=== PATIENT | male | born 1950 | race Caucasian/White ===

== ENCOUNTER 2017-12-01 13:32 | Day surgery (SDC) | payer MEDICARE, OTHER, SELFPAY ==
[2017-12-01 14:11] VITALS: BP 135/80; PULSE 76; RESP 16; TEMP 36.9; O2SAT 98
[2017-12-01] MEDS: SODIUM CHLORIDE 0.9% 1,000 ML 200 ML IV (14:15)
--- NOTE | 2017-12-01 15:13 | P.HP_ITS ---
History of Present Illness Date Patient Seen: 12/01/17 Time Patient Seen: 15:11 Chief complaint: colonoscopy [id number] Narrative: Very pleasant 67-year-old gentleman here for screening colonoscopy. He denies any problems or symptoms related to the function of his GI tract reports he needs a colonoscopy as part of the Health maintenance program. He is not certain when his last colonoscopy was done but he thinks it was more than 10 years ago. Patient History Family & Social History Family History: Reviewed 12/01/17 by Lamar Bradshaw MD Social History: household members none Review of Systems Review of Systems All systems reviewed & are unremarkable except as noted in HPI and below Exam Vital Signs (past 8 hours): Vital Signs - 8 hr 3 12/01/17 14:11 Temperature 98.4 F Pulse Rate 76 Respiratory Rate 16 Blood Pressure 135/80 H Pulse Oximetry 98 Pulse Oximetry 98 Oxygen Delivery Method Room Air Narrative Exam Narrative: Very pleasant well-nourished well-developed man in no distress. HEENT: Normocephalic and atraumatic, pupils equal round reactive to light and accommodation with anicteric sclera. Poor dentition involving the front teeth is noted Lungs: Clear bilaterally Heart: Regular rate and rhythm Abdomen: Soft, rotund, active bowel sounds Extremities: Warm and well perfused Assessment & Plan Plan: Assessment/Plan Narrative: Pleasant gentleman in need of a screening study for health maintenance purposes. We discussed the risks and benefits of colonoscopy and patient expressed desire have procedure
[2017-12-01] MEDS: fentaNYL 250 MCG/5 ML INJ IV (15:34)
[2017-12-01] MEDS: MIDAZOLAM 5 MG/5 ML VIAL IV (15:34)
[2017-12-01 15:37] VITALS: BP 100/65; PULSE 72; RESP 16; O2SAT 94
--- NOTE | 2017-12-01 15:39 | PM.OP.1 ---
Operative Date/Time/Diagnoses - Date of procedure: 12/01/17 Time of procedure: 15:39 Pre-op diagnosis: Screening Post-op diagnosis: same Procedure & Clinicians Procedure: Colonoscopy to the cecum Same procedure as scheduled: Yes Indications: Last colonoscopy approximately 10 years ago Surgeon: Lamar Bradshaw Anesthesia Type: Sedation (Versed 5 mg; fentanyl 200 mcg) Operative Notes Findings: 1. Excellent prep 2. No polyps or mass lesions 3. No AV malformations 4. 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 Rectal varicosities appreciated 6. Grade 1-2 internal hemorrhoids Closure Type: not applicable Specimen(s): none sent Procedure in detail: After obtaining informed consent, the patient was brought to the GI suite and placed in the left lateral decubitus position on the examination table. After placement of appropriate monitors, the patient was given incremental doses of Versed and Fentanyl until an appropriate level of sedation was achieved. A time out was held per SCOAP protocol. A digital rectal examination was performed and did not reveal any masses or obstructing lesions. The colonoscope was gently passed into the patient's anus and the entire colon navigated to the level of the cecum with minimal difficulty. Once in the cecum, the scope was withdrawn being sure to go before and beyond all mucosal folds and prominences and get an excellent examination. The findings are noted above. At the level of the rectal vault, the scope was retroflexed and the internal anal canal was examined. The scope was straightened and air aspirated from the colon. The instrument was removed from the patient's body and the procedure was concluded. The patient was allowed to awaken from sedation without difficulty and taken to the post-anesthesia care unit in good condition. Total sedation time 20 min Total withdrawal time 14 min Condition: stable Disposition: PACU Plan for aftercare: 1. Discharge to home 2. Plan for next colonoscopy in 10 years or as clinically indicated
[2017-12-01 15:42] VITALS: BP 112/77; PULSE 75; RESP 16; O2SAT 94
[2017-12-01 15:51] VITALS: BP 114/73; PULSE 78; RESP 12; O2SAT 95
[2017-12-01 15:59] VITALS: BP 108/70; PULSE 73; RESP 15; TEMP 36.4; O2SAT 95
== END 2017-12-01 16:14 ==
LOC: ENDO 13:36
PROVIDERS: PCP Family Medicine; Visit Provider Surgery
PROC: 0DJD8ZZ Inspection of Lower Intestinal Tract, Via Natural or Artificial Opening Endoscopic (ICD-10-PCS; CPT 45378; principal; 2017-12-01 15:00)
DX: Z12.11 Encounter for screening for malignant neoplasm of colon (principal); K57.30 Diverticulosis of large intestine without perforation or abscess without bleeding; K64.1 Second degree hemorrhoids; I86.8 Varicose veins of other specified sites
CPT/HCPCS: G0121; 99152; J2250; J3010

== ENCOUNTER → 2020-01-24 12:28 | Outpatient (CLI) | payer MEDICARE, SELFPAY ==
--- NOTE | 2020-01-24 | DI.RAD.S_ITS ---
PROCEDURE: [place] BARIUM SWALLOW INDICATIONS: Dyskinesia of esophagus COMPARISON: None. FINDINGS: Function: There is decreased esophageal peristalsis. No elicited gastroesophageal reflux. Morphology: Air-contrast images demonstrate normal mucosal morphology. However, there is narrowing of the distal esophagus at the GE junction. There is associated delayed transit a barium tablet. IMPRESSION: Irregular distal esophageal stricture/narrowing, at the GE junction. Associated delayed transit of barium tablet. Recommend further evaluation with dedicated upper endoscopy to exclude stricture and/or mass. Findings and recommendations were personally telephoned and discussed with Dr. Chandler nurse ([facility]) 01/24/20 1456 hours who will relay them as soon as possible and call back if any questions Esophageal dysmotility Dictated by: Elliott Whitaker M.D. on 01/24/2020 at 13:59 Approved by: Elliott Whitaker M.D. on 01/24/2020 at 14:57
== END ==
PROVIDERS: PCP Family Medicine; Referring Provider Family Medicine; Visit Provider Family Medicine
DX: K22.4 Dyskinesia of esophagus (principal); K22.2 Esophageal obstruction
CPT/HCPCS: 74220

== ENCOUNTER → 2020-02-28 13:07 | Outpatient (ROUT) | payer MEDICARE, SELFPAY ==
[2020-02-29 07:38] LABS: COVID19 Sendout Not Detected (Not Detect)
== END ==
PROVIDERS: PCP Family Medicine; Visit Provider Nurse Practitioner
DX: Z11.59 Encounter for screening for other viral diseases (principal)
CPT/HCPCS: 87635

== ENCOUNTER 2020-03-02 10:21 | Day surgery (SDC) | payer MEDICARE, SELFPAY ==
[2020-03-02] VITALS (14 sets, daily range): BP systolic 95–129; BP diastolic 63–82; PULSE 64–82; RESP 13–17; TEMP 36.1–36.7; O2SAT 94–100; BMI 29.0
--- NOTE | 2020-03-02 | PATH_ITS ---
[facility] Accession Number: [id number] . 01 Material submitted: . PART A: duodenum - DUODENAL POLYP PART B: esophagus, E-G Junction - GE JUNCTION CANCER . 01 Clinical history: . A: DUODENAL POLYP X2 . 02 Diagnosis: A. Duodenal Polyps, Biopsies: One fragment of gastric mucosa with a focus of malignant glands; please see comment. One fragment of duodenal mucosa with features of peptic duodenitis. 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 . B. 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 Rare Goblet cells, suggestive of background Trujillo's esophagus. . HER2 BIOMARKER: A HER-2 immunostain is performed on the gastroesophageal junction biopsy (block B1), with control stained appropriately. The carcinoma cells show the following results: . HER-2 (4B5): Negative (0). . TECHNICAL NOTE: Cold ischemic time approximately 1 minute. Formalin fixation time approximately 12 hours. The scoring criteria for HER-2 expression by immunohistochemistry in gastric and esophagogastric junction adenocarcinoma is based on the current ASCO/CAP 2013 guidelines (as used in the ToGA trial, Bang et al, Lancet 28:376,927-928,2010). [facility] 03/07/2020 [facility]4 Local . 02 Comment: One fragment of tissue within the duodenal biopsy shows gastric type mucosa with a focus of malignant appearing glands. Given the findings in the gastroesophageal junction, it is favored that this biopsy fragment represents carryover from the other part. Please correlate [facility] clinical and endoscopic findings. . As part of routine director of quality improvement, Dr. Caraballo has reviewed this case and agrees with the diagnoses above. The finding of malignancy was reported to Dr. Quintanilla via Bernadette GUTIÉRREZ, by Dr. Sloan on 03/06/2020. . 02 Electronically signed: . Joesph Sloan MD, PhD, Pathologist NPI- [id number] . 01 Gross description: . A. Received in formalin, labeled duodenum polyps x2, are two fragments of diaz, soft tissue measuring 0.3 x 0.3 x 0.2 cm to 0.3 x 0.2 x 0.2 cm and one larger piece of diaz, firm tissue measuring 0.7 x 0.7 x 0.5 cm. The two smaller fragments are entirely submitted in cassette A1. The larger piece of tissue is inked, serially sectioned into four slices, and entirely submitted in cassette A2. B. Received in formalin, labeled GE junction CA, are two pieces of diaz, soft tissue measuring 0.7 x 0.4 x 0.3 cm to 0.3 x 0.2 x 0.2 cm. The first piece is inked blue, bisected, and entirely submitted in cassette B1. The second piece is inked green and entirely submitted in cassette B1. The total number pieces in cassette B1 is three. Minute amounts of mucoid material is also observed measuring 0.2 x 0.2 x 0.1 cm in aggregate. All material is entirely submitted in cassette B2. ([id number]) /[facility] 03/03/2020 0903 Local . 02 Microscopic: . A. An immunohistochemical stain was performed to evaluate for Helicobacter organisms and is negative. The control stain showed appropriate reactivity. . B. Sections are of proximal gastric type mucosa with marked chronic, mild active inflammation. Areas are replaced by a proliferation of epithelioid cells in a nested and diffuse growth pattern. Patchy areas of necrosis are present. To further classify the malignant cells, a panel of immunohistochemical stains is performed (each with an appropriately positive control). The malignant cells are positive for cytokeratin 7 (variable), cytokeratin 20 (variable), and villin (brush border accentuation), and are negative for p40 and CK5/6 immunoreactivity. An AB/PAS stain highlights scattered intracellular mucin within the malignant cells. Additionally, scattered goblet cells are seen in the background, suggestive of background Trujillo's esophagus. The morphology and immunoprofile are consistent with esophageal primary adenocarcinoma. Squamous cell carcinoma is excluded. The adenocarcinoma cells are negative (0) for HER-2 overexpression. . * This test was developed and its performance characteristics determined by [employer]. It has not been cleared or approved by the U.S. Food and Drug Administration. The FDA has determined that such clearance or approval is not necessary. This test is used for clinical purposes. It should not be regarded as investigational or for research. . 02 Pathologist provided ICD-10: C15.9, K31.7 . 02 CPT . 862368, 268546, A22038, N29037, 087665 Performed at: 01 [facility] [address] [place] [address] [id number] MD Jayme Calixto MD Phone: [phone] Performed at: 02 [facility] [address] [place] [address] [id number] MD Rohini Caraballo MD Phone: [phone]
[2020-03-02] MEDS: SODIUM CHLORIDE 0.9% 1,000 ML 200 ML IV ×2 (10:39→12:32)
--- NOTE | 2020-03-02 11:26 | PM.PREOP ---
Pre-operative Note COVID-19 COVID-19 status: Negative Result date/Date tested (Pos, Neg/Pending): 02/28/20 Interval Note History & Physical reviewed/Exam performed by Physician: Yes Changes to H&P: No ASA Class (for procedural sedation): II
--- NOTE | 2020-03-02 11:27 | PM.OP.ENDO ---
Operative Date/Time/Diagnoses Date of procedure: 03/02/20 Time of procedure: 11:28 Pre-op diagnosis: Dysphagia, esophageal stricture seen on swallowing study Post-op diagnosis: other (GE junction cancer, approximately 4 x 3 cm just inside the GE junction with extension into the lower esophagus.) Procedure & Clinicians Study performed: EGD Procedural sedation performed by the endoscopist Biopsies of duodenal polyp with hot snare Biopsies of gastric cardia neoplasm with hot snare Same procedure as scheduled: Yes Indications: 69-year-old man with dysphagia, and esophageal stricture seen on the barium swallow Surgeon: Heather Quintanilla Procedure Notes SCOAP/Timeout: Performed Procedure in detail: The patient was brought to the room and placed in left lateral decubitus position with all bony prominences padded. A bite block was positioned in the patient's mouth to protect the lips, teeth, and tongue for the procedure. A time-out was performed and then the patient was given procedural sedation starting with [4] mg of Versed and [100] mcg of fentanyl. A total of 11 mg of Versed and 100 micro g of fentanyl were given for the entire procedure. Vitals were monitored throughout the procedure and remained stable. Once adequately sedated, the procedure was begun. The lubricated gastroscope was passed through the bite block and across the tongue and into the esophagus without incident. A tubular view of the esophagus was maintained as the scope was advanced through the esophagus. In the distal esophagus large 4 cm tongue of salmon-colored mucosa was seen extending up into the esophagus. Just distal to that at the GE junction there was some heaped up mucosa. As I advanced into the stomach, I saw a large necrotic mass consistent with a cancer. I advanced into the stomach and through the pylorus. There were multiple polyps within the duodenal bulb. I then advanced into the 3rd part of the duodenum. There was an ulcer that was not actively bleeding and with no exposed vessel seen in the 2nd part of the duodenum. I then pulled back into the stomach, examined the remainder of the stomach and no other masses were seen. The scope was retroflexed and again a large cancerous appearing mass was seen at the GE junction. It was approximately 4 x 4 cm with a large deep ulcer in the center. I took several biopsies with hot snare. The mass was very friable and bled when touched. Once hemostasis was achieved using cautery, I then straightened the scope and pulled it back into the esophagus. There was some narrowing of the distal esophagus at the site of the neoplasm. Again I saw large 4 cm time of Trujillo's esophagus. The scope was then withdrawn through the esophagus with a tubular view. The remainder of the esophagus appeared fairly normal. The scope was then withdrawn from the patient the procedure was concluded. The patient tolerated the procedure well and was transferred to the PACU in stable condition. 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
[2020-03-02] MEDS: fentaNYL 250 MCG/5 ML INJ IV (11:28)
[2020-03-02] MEDS: LIDOCAINE 4% SOLN 50 ML 20 ML TOP (11:28)
[2020-03-02] MEDS: MIDAZOLAM 5 MG/5 ML VIAL IV (11:29)
[2020-03-02 13:29] LABS: Add Manual Diff / Slide Review NO; Basophils Absolute Auto 100 /uL (0-100); Basophils Percent Auto 0.8 % (0-2); Eosinophils Absolute Auto 200 /uL (0-450); Hematocrit 41.4 % (41-53); Hemoglobin 13.9 g/dL (13.5-17.5); Lymphocytes Absolute Auto 1500 /uL (1100-4500); Lymphocytes Percent Auto 20.1 % (25-40); Mean Corpuscular HGB Conc 33.6 % (30-36); Mean Corpuscular Hemoglobin 32.1 PG (26-34); Mean Corpuscular Volume 95.7 fL (80-100); Monocytes Absolute Auto 600 /uL (0-900); Monocytes Percent Auto 7.9 % (3-14); Neutrophils Absolute Auto 5300 /uL (1500-7000); Neutrophils Percent Auto 69.2 % (50-75); Platelet Count 270 X10^3/uL (150-400); Red Blood Cell Count 4.33 X10^6/uL (4.5-5.9); Red Cell Distribution Width 13.4 % (11.6-14.8); White Blood Cell Count 7.6 X10^3/uL (4.5-11.0)
[2020-03-02 13:52] LABS: Alanine Aminotransferase 14 IU/L (<50); Albumin 3.7 g/dL (3.5-5.0); Albumin Globulin Ratio 1.2 (1.0-2.8); Alkaline Phosphatase 63 U/L (38-126); Aspartate Aminotransferase 22 IU/L (17-59); BUN Creatinine Ratio 16.5 (6-22); Bilirubin Total 0.5 mg/dL (0.2-1.3); Blood Urea Nitrogen 15 mg/dL (9-20); Calcium 8.6 mg/dL (8.4-10.2); Carbon Dioxide 29 mmol/L (22-32); Chloride 103 mmol/L (98-107); Estimated Glomerular Filt Rate > 60.0 mL/min (>60); Glucose 110 mg/dL (80-110); Sodium 139 mmol/L (137-145); Total Protein 6.7 g/dL (6.3-8.2)
[2020-03-02 13:55] LABS: HEMOLYSIS 52 (0-50)
--- NOTE | 2020-03-02 14:02 | DI.CT.S_ITS ---
PROCEDURE: CT CHEST ABD PEL W CON INDICATIONS: new esophageal cancer, bleeding TECHNIQUE: After the administration of intravenous contrast, 5 mm thick sections acquired from the lung apices to the symphysis. 5 mm coronal and sagittal reformats were performed, with additional 7 mm coronal MIP reformats through the lungs. For radiation dose reduction, the following was used: automated exposure control, adjustment of mA and/or kV according to patient size. COMPARISON: [facility], , [place] BARIUM SWALLOW, 01/24/2020, 11:55. FINDINGS: Image quality: Excellent. CHEST: Lungs and pleura: No definite acute airspace opacities. There is mild linear scarring or atelectasis each lung base, left slightly greater than right No pleural effusions or pneumothorax. Central and peripheral airways appear patent and normal in caliber. Mediastinum: Heart size is normal. No pericardial effusion. No mediastinal or hilar adenopathy by size criteria. Thoracic aorta and central pulmonary arteries are normal in size. Esophagus is normal in caliber. No hiatal hernia is seen but the distal esophagus appears somewhat thickened along its mural margin, as it transitions into the esophagogastric junction and upper gastric cardia. Chest wall: No axillary or supraclavicular adenopathy by size criteria. Thyroid gland appears normal. ABDOMEN: Solid organs: Liver is normal in size and enhancement. Gallbladder appears normal. Biliary system is non dilated. Pancreas enhances normally. Spleen is normal in size and enhancement. No adrenal nodules. Kidneys demonstrate normal size and enhancement, without hydronephrosis. Note is made of a water density exophytic upper pole left renal cortical cyst measuring up to 5.8 cm. Peritoneum and bowel: Bowel loops demonstrate normal wall thickness and caliber. No free fluid or air. There is, however, abnormal thickening of the gastric wall at the gastric cardia, with a relatively abrupt transition from thickened appearance to a more normal gastric wall thickness immediately beyond. The area of abnormality appears slightly in enhancing, above normal, with a maximal infiltrative appearance within the gastric wall of up to 8.4 cm AP, 2.8 cm maximal transverse and up to 4.7 cm craniocaudad. At the posterior gastric cardia as it transitions through the margin of the gastrohepatic ligament there is an eccentric soft tissue projection from the gastric wall measuring up to 2.7 cm in maximal axial dimension. This is somewhat rounded, contiguous with the abnormal gastric wall, and extends to abut the border of the arteries within the gastrohepatic ligament. This is best seen on coronal re-formation imaging series 4, image 34, and axial imaging series 2, image 57. A contiguous enlarged lymph node or direct invasion from the gastric wall into the gastrohepatic ligament both could produce this appearance. Nodes and vessels: No retroperitoneal or mesenteric adenopathy by size criteria. Aorta and inferior vena cava are normal in size. Miscellaneous: No ventral hernias. PELVIS: Genitourinary: Bladder wall thickness is normal. Miscellaneous: No inguinal hernias or adenopathy. Bones: No suspicious bony lesions. No vertebral body compression fractures. IMPRESSION: Malignant-appearing mass involving the far distal esophagus and centered in the gastric cardia with abnormal increased enhancement and thickening of the gastric wall in that area and with what appears to be either directly contiguous enlarged lymph node in the gastrohepatic ligament or direct invasion from the neoplasm into that ligament, abutting arterial structures within. No sign of gastric or esophageal dilatation. No adenopathy along the esophagus within the chest is found, and there is no visualized pulmonary metastatic disease. Dictated by: Luis Gonzalez M.D. on 03/02/2020 at 15:09 Approved by: Luis Gonzalez M.D. on 03/02/2020 at 15:19
== END 2020-03-02 15:13 | disposition home or self-care (01) ==
PROVIDERS: PCP Family Medicine; Referring Provider Family Medicine; Visit Provider Surgery
PROC: 0DJ08ZZ Inspection of Upper Intestinal Tract, Via Natural or Artificial Opening Endoscopic (ICD-10-PCS; CPT 43235; principal; 2020-03-02 11:30)
DX: C15.9 Malignant neoplasm of esophagus, unspecified (principal); F17.210 Nicotine dependence, cigarettes, uncomplicated; K31.7 Polyp of stomach and duodenum; K26.9 Duodenal ulcer, unspecified as acute or chronic, without hemorrhage or perforation
CPT/HCPCS: 43250; 71260; 74177; 80053; 85025; 99152; 99153; J2250; J3010; Q9967

== ENCOUNTER → 2020-03-17 10:41 | Outpatient (CLI) | payer MEDICARE, SELFPAY ==
[2020-03-19 09:27] LABS: COVID19 Sendout Not Detected (Not Detect)
== END ==
PROVIDERS: PCP Family Medicine; Visit Provider Nurse Practitioner
DX: Z11.59 Encounter for screening for other viral diseases (principal)
CPT/HCPCS: 87635

== ENCOUNTER 2020-03-23 09:09 | Day surgery (SDC) | payer MEDICARE, SELFPAY ==
[2020-03-21 14:38] VITALS: BMI 30.4
[2020-03-23] VITALS (10 sets, daily range): BP systolic 120–135; BP diastolic 66–75; PULSE 59–79; RESP 12–16; TEMP 35.9–36.6; O2SAT 96–99; BMI 30.4
--- NOTE | 2020-03-23 | DI.RAD.S_ITS ---
PROCEDURE: XR CHEST 1V INDICATIONS: PORT PLACEMENT TECHNIQUE: One view of the chest was acquired. COMPARISON: None. FINDINGS: Surgical changes and devices: Port-A-Cath from right-sided approach extends into the right atrium superiorly. Lungs and pleura: Lungs are clear considering reduced inspiratory volume. No pleural effusions or pneumothorax. Mediastinum: Mediastinal contours appear normal. Heart size is normal. Bones and chest wall: No suspicious bony lesions. Overlying soft tissues appear unremarkable. IMPRESSION: Reduced inspiratory volume, secondary mild lung base atelectasis. No pneumothorax after right-sided Port-A-Cath placement with tip in the upper right atrium. Dictated by: Luis Gonzalez M.D. on 03/23/2020 at 13:28 Approved by: Luis Gonzalez M.D. on 03/23/2020 at 13:29
[2020-03-23 09:53] LABS: COVID19 -Nasal RAPID Negative (Negative)
--- NOTE | 2020-03-23 10:25 | SUR.OPER ---
Addendum entered by Yas Bernal R.N. 03/23/20 11:38: arms tucked at sides with gel pads Original Note: Supine on padded OR bed, head on pillow, arms secured on padded arm boards at <90 degrees abduction, legs uncrossed, safety belt at thigh, tape over blanket over lower legs.
[2020-03-23] MEDS: LACTATED RINGERS 1,000 ML 42 ML IV (10:30)
--- NOTE | 2020-03-23 10:55 | PM.HP.1 ---
History of Present Illness History of Present Illness Date Patient Seen: 03/23/20 Time Patient Seen: 10:55 Chief complaint: SDC Narrative: This is a 69-year-old man with history of obesity, who had had about a 1 month history of difficulty swallowing. He was seen one month ago for EGD and diagnosed with esophageal cancer. He has been seen at [facility] and recommended for chemotherapy. He is here today for portacath placement. He denies any other change since he was here for his EGD. ROS: Positive for swollen glands, difficulty swallowing, vomiting. Thirteen system review is otherwise negative other than as mentioned below and in HPI. PE: GENERAL: Well groomed and cooperative. Appears stated age. Answers questions promptly and appropriately. Vital signs noted. HENT: Normocephalic, atraumatic. Hearing intact. Few scattered palpable cervical lymph nodes, not larger than a cm. EYES: Conjunctiva pink, sclera white, no periorbital swelling. CARDIOVASCULAR: Regular rate. No pedal edema. RESPIRATORY: Non-tachypneic, breathing comfortably on room air. GASTROINTESTINAL: Abdomen soft and non-distended GENITALURINARY: No flank tenderness. MUSCULOSKELETAL: Equal tone and mass bilaterally. SKIN: Warm, dry, soft, appropriate color for ethnicity. No other lesions, rashes, or wounds. NEURO: Alert and Oriented X 3. No gross sensory deficits, or cognitive issues. PSYCH: Appropriate affect and mood. Patient History Medical History Acute hepatitis A (Acute) Kidney stones (Acute) Weight loss, unintentional (Acute) Family & Social History Social History: household members friend(s) Tobacco & Substance use: Tobacco type cigarettes Smoking Status Current every day smoker alcohol intake current alcohol intake frequency holiday/special occasion Substance Use Type does not use Meds Home Medications and Allergies Allergies Allergy/AdvReac Type Severity Reaction Status Date / Time No Known Drug Allergies Allergy Verified 03/23/20 10:13 Exam Vital Signs (past 8 hours): - 03/23/20 10:14 Temperature 97.9 F Pulse Rate 67 Respiratory Rate 16 Blood Pressure 120/70 Pulse Oximetry 98 Oxygen Delivery Method Room Air Objective Labs Labs: Laboratory Results - last 24 hr 03/23/20 09:30 COVID-19 PCR Negative Assessment & Plan Assessment and plan (1) Malignant neoplasm of gastroesophageal junction: Status: Acute (2) Dysphagia: Status: Acute Assessment & Plan narrative: This 69-year-old man with history of esophageal cancer recently diagnosed, who is in need of a Port-A-Cath placed today. Risks and benefits of the procedure were discussed with the patient including risk of bleeding, infection, damage to nearby structures, need for additional procedures, need for chest tube, need for declotting procedures or replacement of the Port-A-Cath should it dysfunction. COVID-19 COVID-19 status: Negative Result date/Date tested (Pos, Neg/Pending): 03/23/20 Time Spent With Patient Time with patient: 15-24 minutes Quality VTE Deep Vein Thrombosis/Pulmonary Embolism Present on Admission: No
[2020-03-23] MEDS: CEFAZOLIN 2 GM/100 ML FROZ.PIGGY IV (11:16)
[2020-03-23] MEDS: BUPIVACAINE 0.25% W/ EPI 30 ML VIAL INJ (11:46)
[2020-03-23] MEDS: HEPARIN 5,000 UNIT, SODIUM CHLORIDE 0.9% 50 ML IV (11:47)
--- NOTE | 2020-03-23 12:02 | P.OP_ITS ---
Operative Date/Time/Diagnoses Date of procedure: 03/23/20 Time of procedure: 12:02 Pre-op diagnosis: Esophageal cancer Post-op diagnosis: same Procedure & Clinicians Procedure: Port-A-Cath placement on right chest via right IJ using ultrasound and fluoroscopy guidance Same procedure as scheduled: Yes Indications: Esophageal cancer, in need of chemotherapy Surgeon: Heather Quintanilla Click Yes if Unassisted: Yes Anesthesia Type: General Operative Notes Findings: Good port and catheter position via intraop fluoroscopy; good flush and blood return after port placement was complete Specimen(s): none sent Prosthetic devices, grafts, tissues, transplants, or devices: BARD slim contour power port Estimated Blood Loss (mL): 5 Procedure in detail: The patient was placed supine on the operating room table and underwent general LMA anesthesia. A roll was placed between his shoulders. The neck and chest were prepped and draped in the usual sterile fashion. Surgical time-out was conducted. The patient was positioned in Trendelenburg, and local anesthetic was infiltrated beneath the skin overlying the right IJ. The right neck was examined with ultrasound, and an appropriate position on the internal jugular vein was identified. The right IJ was accessed with a large- bore needle and syringe using simultaneous ultrasound guidance. Dark blood returned indicating venous access, and the guidewire was passed through the needle. Fluoroscopy was used to identify the position of the guidewire, which appeared appropriate in the superior vena cava. Local anesthetic was infiltrated, and a 3 cm transverse incision was then made in the skin on the right chest wall and a 2 cm x 2 cm pocket was created inferior to the incision. The port was put together and flushed with heparinized saline. It was positioned in the pocket, and the tunneler was used to tunnel the catheter up to the jugular vein after injecting local anesthetic in the subcutaneous tissue of the chest wall. A skin incision was made over top of the guide wire, and the dilator and introducer sheath were passed over the wire using fluoro guidance. The wire and dilator were then removed and the sheath was left in place. The catheter was cut to the appropriate length after evaluating its length using fluoro with the catheter position on the patient's chest. Once it was tapered to appropriate length the catheter was passed through the introducer and then the sheath was peeled away. Again using fluoro guidance, the catheter tip appeared to be in good position within the superior vena cava at the cavoatrial junction. The port was fixed to the chest wall using 3 0 silk suture. The Port-A-Cath was accessed through the skin using a Ortiz needle and was found to flush well and draw back blood easily. It was flushed with 5cc of heparinized saline.The skin was closed with 3 0 Vicryl and 4 0 Monocryl, and the skin incisions were sealed with Dermabond. This concluded the procedure and the patient was awakened from anesthesia and transferred to the postanesthesia care unit in stable condition. Needle sponge and instrument counts were correct x2 at the end of the case. The patient tolerated the procedure well and was transferred to the PACU in stable condition. In the PACU of follow-up chest x-ray was done which showed no pneumothorax and good positioning of the catheter. Complications: none Post-operative Condition: stable Disposition: PACU
[2020-03-23] MEDS: LACTATED RINGERS 1,000 ML 100 ML IV (12:20)
--- NOTE | 2020-03-23 13:32 | SUR.PHASEII ---
PT SITTING UP IN BED RESTING WITH EYES CLOSED, EASILY AROUSABLE TO VOICE WHEN SPOKEN TO. SURGICAL SITE C/D/I. PT DENIES ANY PAIN/DISCOMFORT AT THIS TIME. PT AWAITING ARRIVAL OF AT THIS TIME. BED IN LOWEST POSITION AND CALL LIGHT GIVEN TO PT. PT APPEARS COMFORTABLE AT THIS TIME.
== END 2020-03-23 15:27 | disposition home or self-care (01) ==
PROVIDERS: PCP Family Medicine; Referring Provider Family Medicine; Visit Provider Surgery
PROC: (CPT 36561; principal; 2020-03-23 10:45)
DX: C15.9 Malignant neoplasm of esophagus, unspecified (principal); Z45.2 Encounter for adjustment and management of vascular access device; F17.210 Nicotine dependence, cigarettes, uncomplicated
CPT/HCPCS: 36561; 71045; 76000; 87635; C1788; J0690; J1644; J2704; J3010

== ENCOUNTER → 2020-04-26 15:30 | Oncology outpatient (ONC) | payer MEDICARE, SELFPAY ==
[2020-03-21 08:25] VITALS: BP 118/70; PULSE 68; RESP 18; TEMP 36.9; O2SAT 100
--- NOTE | 2020-03-21 08:42 | ONC.MSW ---
Description: New Pt F/F Visit Activity: Met with pt prior to his provider visit to offer services card, discuss resources such as the [employer] [employer] and Lodging programs, and assess immediate needs. Discussed his insurance coverage and answered questions about the upcoming Medicare enrollment period, and his plan to sign up for a Part D plan, which he currently doesn't have. 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 CAD DRAFTER will talk with him again once his initial treatment plan is established today at this initial consult visit.
--- NOTE | 2020-03-21 09:47 | ONC.CONS ---
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 He recently presented to Dr. Love in December with a one-week history of hiccups, regurgitation and an abnormal sensation of swallowing. This persisted and he had a barium swallow on January 23 that showed a stricture at the gastroesophageal junction. He was referred to Dr. Quintanilla on February 15 that on March 02 he had an upper endoscopy that showed a poorly differentiated adenocarcinoma of the gastroesophageal junction that was HER2 negative. A subsequent CT scan of the chest, abdomen pelvis showed a GE junction tumor with extension of mass into the gastrohepatic ligament abutting blood vessels but no distant metastases. He was seen by Dr. Orlin Jimenez at [facility] in [place]. On March 14 a PET scan showed his primary tumor and adjacent lymph nodes but no evidence of distant metastases. Yesterday he had a laparoscopic staging study which, according to the patient, was negative. He now presents for medical oncology consultation. Review of systems is remarkable for increasing fatigue. He has decreased p.o. intake as a consequence of his trouble swallowing. He does not really have anorexia. He has lost about 20 lb over the last 2 months. He notes still is sometimes have some regurgitation of mucus at the start of a meal but then it gets better afterwards. He has some epigastric discomfort this been present for about 2 months and is ongoing. He denies other pain, bleeding, localized weakness, fever, chills, nausea, vomiting, cough or shortness of breath. All other systems are negative. Past medical history 1. Geriatric assessment: He is independent with his ADLs and IADLs. Get up and go time was 10 seconds which is normal. He answered questions fluently without problems. He has had no falls in the last year. His CARG score is 4 reflecting a risk of significant chemotherapy toxicity of about 30%. Overall he has a fit geriatric status. 2. Family history of lung cancer in his maternal grandfather otherwise no family history of malignancy. 3. He has had no surgeries 4. 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 He has a female significant other with whom he shares a house and is available to help with his medical issues. He smokes 3-4 cigarettes a day and over the years has been a half pack-a-day smoker. He is not a drinker. 5. He has had kidney stones, most recently May 2019. 6. He denies high blood pressure, diabetes, rheumatic fever, tuberculosis, heart attacks, strokes, stomach ulcers, pneumonia or any other kind of cancer 7. No known drug allergies 8. Current medications include Flonase nose spray, as needed Ativan, naproxen 250 mg twice a day as needed, pantoprazole 20 mg daily and PreserVision. CC: Man Catalan MD Home Medications and Allergies Home Medications Medication Instructions Recorded Confirmed Type omeprazole 40 mg PO DAILY 03/21/20 03/21/20 History Allergies Allergy/AdvReac Type Severity Reaction Status Date / Time No Known Drug Allergies Allergy Verified 03/02/20 10:37 Medical History - Medical, Surgical, Family History Medical History: Medical History (Last Updated 03/02/20 @ 11:02 by Janel Victor RN) Acute hepatitis A Kidney stones Weight loss, unintentional - Social History Smoking Status: Current every day smoker Exam Vital signs: Vital Signs Temp Pulse Resp BP Pulse Ox 03/21/20 08:25 98.4 F 68 18 118/70 100 Intake and Output 03/20/20 03/21/20 03/21/20 23:59 07:59 15:59 Other: Weight 90.4 kg Patient Weight 03/21/20 23:59 Weight 90.4 kg Narrative: He was awake, alert and oriented x3. Was fully ambulatory and in no acute distress. There was no lymphadenopathy in the cervical, supraclavicular axillary regions. Lungs were clear without wheezes or rales. Heart showed regular rate and rhythm without murmur, gallop or rub. The abdomen is soft and nontender without organomegaly or masses. There was no evidence of peripheral neuropathy on pinprick examination of his hands or feet. Assessment and Plan (1) Malignant neoplasm of gastroesophageal junction Status: Acute Mr. Allen has a poorly differentiated adenocarcinoma of the gastroesophageal junction. There was extension outside the wall of the GI tract and this would warrant preoperative treatment. I discussed his case with Dr. Orlin Jimenez at [facility] in [place]. I also discussed his case with Dr. Julio Márquez at the [facility]. Dr. Márquez specializes in gastrointestinal malignancies at the [facility]. I explained that preoperative treatment options would include chemo radiotherapy. This would typically be given according to the CROSS trial program of weekly carboplatin Taxol and daily radiation Thursday through Thursday. A typical course would last about 5-5 and half weeks. Side effects can include numbness or tingling in the hands and feet, upset stomach, fatigue, irritation of normal tissues in the pathway of the beam. Other side effects can occur but most people tolerate it fairly well. Alternatively, he could be treated with chemotherapy alone. A standard regimen would be FLOT given according to the program outlined by Crow in Lancet volume 393: Page 1948, 2019. This program involves administration of 5 FU 2600 mg IV is a 24 hour infusion on day 1, Leucovorin 200 milligrams/meter squared on day 1, oxaliplatin 85 milligrams/meters squared on day 1, and Taxotere 50 milligrams/meter squared on day 1. He would need to come for day 1 treatment and day 2 for disconnect. We would typically give Neulasta on day 2 to support his white count given the 51% rate of severe neutropenia, and 18% rate of neutropenic fever with this program. We reviewed possible side effects which can include upset stomach, myelosuppression with the consequent risk of infection or bleeding, hair loss, numbness or tingling in the hands and feet, aches and pains, mouth sores, cold intolerance, skin rash. He will be given written information about each of the medicines and have a teaching session with the chemotherapy nurses prior to initiating treatment. He will also need placement of a Port-A-Cath prior to initiating treatment. He will also be referred to the chief unit forester to try to maximize his calorie intake during his chemotherapy treatments. He was also advised to try to be as active as possible to improve the efficacy and decrease toxicities of treatment. Mr. Allen understood his diagnosis, the rationale for for preoperative treatment, the choices of chemo radiotherapy versus chemotherapy alone, the logistics and potential toxicities of these treatments, and he was interested in proceeding with chemotherapy. I reviewed this with our pharmacy and we will get preauthorization for FLOT. He will be referred to Dr. Quintanilla for Port-A-Cath placement. He also be referred through to the chief unit forester. Will plan to see him back afterwards to start treatment. He had multiple questions that were answered in detail and I personally spent 66 minutes in today's [id number] visit with greater than 50% of the time spent in counseling regarding the issues outlined above. New Impression: 1. Poorly differentiated adenocarcinoma of the gastroesophageal junction with extension outside the GI tract in to adjacent lymph nodes and soft tissue but no evidence of distant metastatic disease 2. Fit geriatric status 3. No evidence of peripheral neuropathy on history or physical examination as outlined above 4. CARG of 4 reflecting a 30% risk of severe toxicity with chemotherapy in this setting 5. Other medical problems as listed above Recommendations: 1. Referral to Dr. Quintanilla for Port-A-Cath placement 2. Referral to chief unit forester for counseling regarding maximizing calorie intake 3. He will return after Port-A-Cath placement to initiate preoperative chemotherapy with FLOT 4. Will plan to give 4 cycles of FLOT at 2 week intervals to be followed by surgery with additional chemotherapy postoperatively. 5. He would be a candidate for day 2 Neulasta and IV fluids as discussed above
--- NOTE | 2020-03-21 10:16 | ONC.SCHED ---
Urgent port placement scheduled with Kristina for 03/23/20 @ 9:45 am check in. Sending referral to nutrition.
[2020-03-27 08:29] VITALS: BP 109/67; PULSE 79; RESP 16; O2SAT 99
[2020-03-27 09:12] LABS: Add Manual Diff / Slide Review NO; Basophils Absolute Auto 100 /uL (0-100); Basophils Percent Auto 1.3 % (0-2); Eosinophils Absolute Auto 100 /uL (0-450); Eosinophils Percent Auto 1.9 % (2-4); Hematocrit 42.4 % (41-53); Hemoglobin 14.6 g/dL (13.5-17.5); Lymphocytes Absolute Auto 1600 /uL (1100-4500); Mean Corpuscular HGB Conc 34.3 % (30-36); Mean Corpuscular Hemoglobin 32.4 PG (26-34); Mean Corpuscular Volume 94.4 fL (80-100); Monocytes Absolute Auto 600 /uL (0-900); Monocytes Percent Auto 8.8 % (3-14); Neutrophils Absolute Auto 4800 /uL (1500-7000); Platelet Count 299 X10^3/uL (150-400); Red Blood Cell Count 4.49 X10^6/uL (4.5-5.9); Red Cell Distribution Width 12.9 % (11.6-14.8); White Blood Cell Count 7.2 X10^3/uL (4.5-11.0)
--- NOTE | 2020-03-27 09:13 | P.PNONC_ITS ---
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 He originally presented to Dr. Love in December with a one-week history of hiccups, regurgitation and an abnormal sensation of swallowing. This persisted and he had a barium swallow on January 23 that showed a stricture at the gastroesophageal junction. He was referred to Dr. Quintanilla on February 15 that on March 02 he had an upper endoscopy that showed a poorly differentiated adenocarcinoma of the gastroesophageal junction that was HER2 negative. A subsequent CT scan of the chest, abdomen pelvis showed a GE junction tumor with extension of mass into the gastrohepatic ligament abutting blood vessels but no distant metastases. He was seen by Dr. Orlin Jimenez at [facility] in [place]. On March 14 a PET scan showed his primary tumor and adjacent lymph nodes but no evidence of distant metastases. Last week he had a laparoscopic staging study which, according to the patient, was negative. He now presents for medical oncology consultation. Review of systems is remarkable for increasing fatigue. He has decreased p.o. intake as a consequence of his trouble swallowing. He does not really have anorexia. He has lost about 20 lb over the last 2 months. He notes still is sometimes have some regurgitation of mucus at the start of a meal but then it gets better afterwards. He has some epigastric discomfort this been present for about 2 months and is ongoing. He denies other pain, bleeding, localized weakness, fever, chills, nausea, vomiting, cough or shortness of breath. All other systems are negative. He does not feel like there has been any significant change since his visit a week ago. Past medical history 1. Geriatric assessment: He is independent with his ADLs and IADLs. Get up and go time was 10 seconds which is normal. He answered questions fluently without problems. He has had no falls in the last year. His CARG score is 4 reflecting a risk of significant chemotherapy toxicity of about 30%. Overall he has a fit geriatric status. 2. Family history of lung cancer in his maternal grandfather otherwise no family history of malignancy. 3. He has had no surgeries 4. 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 He has a female significant other with whom he shares a house and is available to help with his medical issues. He smokes 3-4 cigarettes a day and over the years has been a half pack-a-day smoker. He is not a drinker. 5. He has had kidney stones, most recently May 2019. 6. He denies high blood pressure, diabetes, rheumatic fever, tuberculosis, heart attacks, strokes, stomach ulcers, pneumonia or any other kind of cancer 7. No known drug allergies 8. Current medications include Flonase nose spray, as needed Ativan, naproxen 250 mg twice a day as needed, pantoprazole 20 mg daily and PreserVision. - Patient Self-Reported Symptoms SR Constitution: Weight loss/gain, Fatigue/Malaise SR ears, nose, mouth, throat issues: Cough Home Medications and Allergies Allergies Allergy/AdvReac Type Severity Reaction Status Date / Time No Known Drug Allergies Allergy Verified 03/23/20 10:13 Exam Vital signs: Vital Signs Pulse Resp BP Pulse Ox 03/27/20 08:29 79 16 109/67 99 Intake and Output 03/26/20 03/27/20 03/27/20 23:59 07:59 15:59 Other: Weight 89.6 kg Patient Weight 03/27/20 23:59 Weight 89.6 kg Narrative: He was awake, alert and oriented x3. Was fully ambulatory and in no acute distress. Assessment and Plan (1) Malignant neoplasm of gastroesophageal junction Status: Acute Mr. Allen has a poorly differentiated adenocarcinoma of the gastroesophageal junction. There was extension outside the wall of the GI tract and this would warrant preoperative treatment. He had questions about chemo radiotherapy with weekly Taxol carboplatin. These were answered. His Port-A-Cath has been placed. He would like to proceed with perioperative chemotherapy and we will use FLOT. We reviewed the logistics of this which would involve Leucovorin, oxaliplatin and Taxotere given here in the clinic today. He will then get connection to a 24 hour 5 FU infusion that will be completed tomorrow. A return tomorrow for pump removal and will get a Neulasta injection at that time. He will be 24 hours out from his myelosuppressive chemotherapy at that time. Will also assess the need for intravenous fluids. We discussed the fact that we will give him anti emetics here in the clinic prior to each treatment. His antiemetic regimen was changed to emend, Aloxi and dexamethasone. I will send prescriptions for Compazine and lorazepam to [facility] on [facility] for him to use at home. We also discussed potential toxicities of treatment including alopecia, myelosuppression with the consequent risk of infection or bleeding, numbness and tingling in the hands and feet, fatigue, cognitive issues, skin rash, mouth sores, diarrhea, aches and pains and cold intolerance. He was given written information about the logistics, medications, and potential toxicities. Orders were reviewed with the pharmacy in the nurses. Mr. Allen understood his diagnosis, the rationale for for preoperative treatment, the choices of chemo radiotherapy versus chemotherapy alone, the logistics and potential toxicities of these treatments, and he was interested in proceeding with chemotherapy. Impression: 1. Poorly differentiated adenocarcinoma of the gastroesophageal junction with extension outside the GI tract in to adjacent lymph nodes and soft tissue but no evidence of distant metastatic disease 2. Fit geriatric status 3. No evidence of peripheral neuropathy on history or physical examination as outlined above 4. CARG of 4 reflecting a 30% risk of severe toxicity with chemotherapy in this setting 5. Other medical problems as listed above Recommendations: 1. Begin chemotherapy today with FLOT cycle 1. 2. Return tomorrow to disconnect 5 FU infusion pump and received Neulasta 3. CBC on [facility] in 1 week 4. Return in 2 weeks for cycle 2. 5. Prescriptions for Compazine lorazepam as home antiemetics were sent to [facility] 6. Will plan 4 doses of chemotherapy at 2 week intervals with careful monitoring for toxicity. Efficacy at assessment would initially take the form of monitoring his swallowing function and will get a follow-up CT scan after 4 rounds (8 weeks) of chemotherapy
[2020-03-27 09:25] LABS: Alanine Aminotransferase 15 IU/L (<50); Albumin 4.1 g/dL (3.5-5.0); Albumin Globulin Ratio 1.3 (1.0-2.8); Alkaline Phosphatase 83 U/L (38-126); Aspartate Aminotransferase 19 IU/L (17-59); BUN Creatinine Ratio 15.1 (6-22); Bilirubin Total 0.4 mg/dL (0.2-1.3); Blood Urea Nitrogen 14 mg/dL (9-20); Calcium 9.4 mg/dL (8.4-10.2); Carbon Dioxide 29 mmol/L (22-32); Chloride 104 mmol/L (98-107); Estimated Glomerular Filt Rate > 60.0 mL/min (>60); Globulin 3.1 g/dL (1.7-4.1); Glucose 124 mg/dL (80-110); HEMOLYSIS < 15 (0-50); Potassium 4.4 mmol/L (3.4-5.1); Sodium 138 mmol/L (137-145); Total Protein 7.2 g/dL (6.3-8.2)
--- NOTE | 2020-03-27 15:30 | PC.NURSE ---
Chemo Teaching; Chemotherapy Education: Pt provided written information on all topics discussed. Written materials printed from www[facility] Pt was given an overview of cancer and mechanism of action of cancer cells, that cancer is caused by cells that are dividing rapidly, and out of control. Traditional chemotherapy works by targeting the fast dividing cells and killing them. Chemotherapy affecting healthy cells dividing quickly causes many of the side effects (hair follicles, bone marrow, mucus membranes). Overview of blood cell functions of white cells to fight infection, red cells to carry oxygen, and platelets to stop bleeding was discussed, and that when bone marrow is affected by chemo, there is a decrease in production of these cells. Home care of the patient following chemotherapy was discussed. Body fluids will be contaminated for 48 hours following treatment, and any body fluids handled by caregivers should be handled wearing gloves, surfaces need to be cleaned with soap and water, any soiled linens or clothing need to be washed separately in hot water, toilet lid should be closed when flushing, person cleaning the toilet should wear gloves. How chemotherapy is administered by the RN?s in the clinic, that orders are double checked by pharmacy and checked again by two RN?s prior to administration. Nurses wear protective gear to prevent exposure to them of the chemotherapy agents which can also cause cancer. Cancer center information discussed and written hand out provided listing on-call oncologist available weekends and after hours triage R.N. hours and infusion room guide. New patient folder given to pt, which includes clinic names, phone numbers, clinic information, calendar, cancer glossary, and list of resources. Handout on advanced directives Common side effects of chemotherapy were discussed with self care tips for prevention of complications. Information also provided in writing. These included: Low blood counts (anemia, thrombocytopenia, neutropenia) Hair loss (alopecia) Nausea and vomiting Decreased appetite Loss of fertility Diarrhea Mouth sores Constipation Peripheral neuropathy Chemo brain/cognitive changes Fatigue Instructions on when to call your healthcare team or on-call physician immediately: Fever of 100.4 or higher, chills, any signs of infection Shortness of breath, wheezing, difficulty breathing, closing of throat, swelling of face, hives (signs of possible allergic reaction) Chest pain, fast heart beat or feelings of a different heart rhythm Swelling of an extremity with or without pain signs of stroke Instructions on when to call your healthcare team within the next 24 hours Nausea that interferes with ability to eat and unrelieved with prescribed medication Diarrhea (4-6 episodes in 24 hour period). Unusual bleeding or bruising Black or tarry stools, or blood in your stools Blood in the urine pain or burning with urination Extreme fatigue (unable to perform self-care activities) Mouth sores or sore areas in your mouth Bad headache Dizziness or lightheadedness Large weight gain over a short period of time General self-care tips while undergoing treatment discussed were as follows. Written materials were provided covering in detail and additional self care tips. Drink at least 2-3 quarts (8-10 glasses) of no-caffeinated beverages daily unless you are instructed otherwise and empty your bladder frequently Report any concerning symptoms to your healthcare team Avoid crowds and sick people, wash your hands frequently Use a soft bristled toothbrush, rinse three times a day with 1 tsp baking soda or 1 tsp salt mixed with warm water Avoid any mouthwashes or oral and skin products containing alcohol or fragrances Use electric razors to avoid cutting yourself Avoid contact sports or activities that could cause head injury or bleeding Avoid sun exposure, wear SPF 15 or higher, wear protective clothing Get plenty of rest, meter your activities Maintain good nutrition Avoid alcoholic beverages Attend your scheduled appointments and lab draws Treatment regimen reviewed and medications were discussed with attention to specific side effects and self care for the pt?s treatment regimen. Pt encouraged to keep a list of questions that may arise after this teaching session and bring back to next clinic visit to address. All pt's questions answered at this time. Pt verbalizes understanding of treatment plan.
[2020-03-28 09:40] VITALS: BP 135/79; PULSE 73; RESP 16; TEMP 36.3; O2SAT 99
[2020-03-28] MEDS: FOSAPREPITANT 150 MG in SODIUM CHLORIDE 0.9% 150 ML 300 ML IV (10:14)
[2020-03-28] MEDS: PALONOSETRON 0.25 MG/5 ML VIAL IV (11:22)
[2020-03-28] MEDS: DOCETAXEL IV (11:55)
[2020-03-28] MEDS: SODIUM CHLORIDE EXCEL IV (11:55)
[2020-03-28] MEDS: LEUCOVORIN IV (13:11)
[2020-03-28] MEDS: DEXTROSE 5% IV ×2 (13:11)
[2020-03-28] MEDS: OXALIPLATIN IV (13:11)
[2020-03-28] MEDS: DEXTROSE 5 % IN WATER 100 ML 21 ML IV (13:12)
[2020-03-29 15:59] VITALS: BP 110/60; PULSE 61; RESP 16; TEMP 36.5; O2SAT 98
[2020-03-29] MEDS: PEGFILGRASTIM-CBQV 6 MG/0.6 ML SYRINGE SUBCUT (16:05)
--- NOTE | 2020-03-29 16:15 | PC.NURSE ---
PUMP DISCONNECT Verified infusion complete. Port de-accessed per protocol. Pt assessment & VS done by SahilRN (see flowsheet).
--- NOTE | 2020-04-10 11:25 | ONC.MSW ---
Description: Lodging Activity: Reserved a room for patient on 04/11 at [facility], confirmation#[id number].
[2020-04-11 09:16] LABS: Add Manual Diff / Slide Review NO; Basophils Absolute Auto 100 /uL (0-100); Basophils Percent Auto 1.1 % (0-2); Eosinophils Absolute Auto 100 /uL (0-450); Eosinophils Percent Auto 0.8 % (2-4); Hematocrit 42.9 % (41-53); Hemoglobin 14.4 g/dL (13.5-17.5); Lymphocytes Absolute Auto 2700 /uL (1100-4500); Lymphocytes Percent Auto 23.5 % (25-40); Mean Corpuscular HGB Conc 33.7 % (30-36); Mean Corpuscular Hemoglobin 31.6 PG (26-34); Mean Corpuscular Volume 93.8 fL (80-100); Monocytes Absolute Auto 800 /uL (0-900); Monocytes Percent Auto 7.2 % (3-14); Neutrophils Absolute Auto 7600 /uL (1500-7000); Neutrophils Percent Auto 67.4 % (50-75); Platelet Count 340 X10^3/uL (150-400); Red Blood Cell Count 4.57 X10^6/uL (4.5-5.9); Red Cell Distribution Width 12.7 % (11.6-14.8); White Blood Cell Count 11.3 X10^3/uL (4.5-11.0)
[2020-04-11 09:25] VITALS: BP 123/60; PULSE 57; RESP 18; TEMP 36.7; O2SAT 100
[2020-04-11 09:25] LABS: Alanine Aminotransferase 27 IU/L (<50); Albumin Globulin Ratio 1.3 (1.0-2.8); Alkaline Phosphatase 131 U/L (38-126); Aspartate Aminotransferase 32 IU/L (17-59); BUN Creatinine Ratio 13.7 (6-22); Bilirubin Total 0.3 mg/dL (0.2-1.3); Blood Urea Nitrogen 13 mg/dL (9-20); Calcium 9.2 mg/dL (8.4-10.2); Carbon Dioxide 31 mmol/L (22-32); Chloride 103 mmol/L (98-107); Estimated Glomerular Filt Rate > 60.0 mL/min (>60); Globulin 3.2 g/dL (1.7-4.1); Glucose 111 mg/dL (80-110); HEMOLYSIS < 15 (0-50); Potassium 4.6 mmol/L (3.4-5.1); Sodium 138 mmol/L (137-145); Total Protein 7.2 g/dL (6.3-8.2)
--- NOTE | 2020-04-11 09:48 | P.PNONC_ITS ---
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 He originally presented to Dr. Love in December with a one-week history of hiccups, regurgitation and an abnormal sensation of swallowing. This persisted and he had a barium swallow on January 23 that showed a stricture at the gastroesophageal junction. He was referred to Dr. Quintanilla on February 15 that on March 02 he had an upper endoscopy that showed a poorly differentiated adenocarcinoma of the gastroesophageal junction that was HER2 negative. A subsequent CT scan of the chest, abdomen pelvis showed a GE junction tumor with extension of mass into the gastrohepatic ligament abutting blood vessels but no distant metastases. He was seen by Dr. Orlin Jimenez at [facility] in [place]. On March 14 a PET scan showed his primary tumor and adjacent lymph nodes but no evidence of distant metastases. Last week he had a laparoscopic staging study which, according to the patient, was negative. Pathology from the laparoscopy was negative. Because of his locally advanced tumor he was started on neoadjuvant FLOT chemotherapy 2 weeks ago. He received Neulasta on day 2. He notes that the 1st few days he was exhausted and had anorexia. He developed gradually increasing constipation that got better with milk of magnesia. He had cold induced numbness in his hands and feet that has since resolved. Over the last several days he is feeling a lot better with increasing strength in energy. He feels much better than before he started the chemotherapy. He also has had improvement in his swallowing. He can now eat and drink more normal foods without regurgitation or did as much dysphagia. He has never had nausea or vomiting. He did not have any fevers or chills. He comes today for cycle 2. He is not having any particular problems with new pain, bleeding, localized weakness, fever, chills, nausea, vomiting, cough or shortness of breath. All other systems are negative. He continues to have his epigastric pain which is about the same as it was before. It is intermittent, sometimes bothers him at night and is not severe. Past medical history 1. Geriatric assessment: He is independent with his ADLs and IADLs. Get up and go time was 10 seconds which is normal. He answered questions fluently without problems. He has had no falls in the last year. His CARG score is 4 reflecting a risk of significant chemotherapy toxicity of about 30%. Overall he has a fit geriatric status. 2. Family history of lung cancer in his maternal grandfather otherwise no family history of malignancy. 3. He has had no surgeries 4. 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 He has a female significant other with whom he shares a house and is available to help with his medical issues. He smokes 3-4 cigarettes a day and over the years has been a half pack-a-day smoker. He is not a drinker. 5. He has had kidney stones, most recently May 2019. 6. He denies high blood pressure, diabetes, rheumatic fever, tuberculosis, heart attacks, strokes, stomach ulcers, pneumonia or any other kind of cancer 7. No known drug allergies 8. Current medications include Flonase nose spray, as needed Ativan, naproxen 250 mg twice a day as needed, pantoprazole 20 mg daily and PreserVision. - Patient Self-Reported Symptoms SR Constitution: Weight loss/gain, Fatigue/Malaise SR ears, nose, mouth, throat issues: Cough SR Gastrointestinal issues: Constipation Home Medications and Allergies Home Medications Medication Instructions Recorded Confirmed Type lorazepam [Ativan] 0.5 mg PO TID PRN #25 tab 03/27/20 04/11/20 Rx prochlorperazine maleate 10 mg PO Q6H PRN #25 tab 03/27/20 04/11/20 Rx [Compazine] magnesium hydroxide [Milk of 400 mg PRN PRN 04/11/20 04/11/20 History Magnesia] Allergies Allergy/AdvReac Type Severity Reaction Status Date / Time No Known Drug Allergies Allergy Verified 03/23/20 10:13 Exam Vital signs: Vital Signs Temp Pulse Resp BP Pulse Ox 04/11/20 09:25 98.1 F 57 L 18 123/60 100 Intake and Output 04/10/20 04/11/20 04/11/20 23:59 07:59 15:59 Other: Weight 85.5 kg Patient Weight 04/11/20 23:59 Weight 85.5 kg Narrative: He was awake, alert and oriented x3. Was fully ambulatory and in no acute distress. Results - Labs Laboratory Last Values WBC 11.3 X10^3/uL (4.5-11.0) H 04/11/20 09:00 RBC 4.57 X10^6/uL (4.5-5.9) 04/11/20 09:00 Hgb 14.4 g/dL (13.5-17.5) 04/11/20 09:00 Hct 42.9 % (41-53) 04/11/20 09:00 MCV 93.8 fL (80-100) 04/11/20 09:00 MCH 31.6 PG (26-34) 04/11/20 09:00 MCHC 33.7 % (30-36) 04/11/20 09:00 RDW 12.7 % (11.6-14.8) 04/11/20 09:00 Plt Count 340 X10^3/uL (150-400) 04/11/20 09:00 Neut % (Auto) 67.4 % (50-75) 04/11/20 09:00 Lymph % (Auto) 23.5 % (25-40) L 04/11/20 09:00 [place] % (Auto) 7.2 % (3-14) 04/11/20 09:00 Eos % (Auto) 0.8 % (2-4) L 04/11/20 09:00 Baso % (Auto) 1.1 % (0-2) 04/11/20 09:00 Neut # (Auto) 7600 /uL (2895-5866) H 04/11/20 09:00 Lymph # (Auto) 2700 /uL (4803-2941) 04/11/20 09:00 [place] # (Auto) 800 /uL (0-900) 04/11/20 09:00 Eos # (Auto) 100 /uL (0-450) 04/11/20 09:00 Baso # (Auto) 100 /uL (0-100) 04/11/20 09:00 Sodium 138 mmol/L (137-145) 04/11/20 09:00 Potassium 4.6 mmol/L (3.4-5.1) 04/11/20 09:00 Chloride 103 mmol/L (98-107) 04/11/20 09:00 Carbon Dioxide 31 mmol/L (22-32) 04/11/20 09:00 BUN 13 mg/dL (9-20) 04/11/20 09:00 Creatinine 0.95 mg/dL (0.66-1.25) 04/11/20 09:00 Estimated GFR > 60.0 mL/min (>60) 04/11/20 09:00 BUN/Creatinine Ratio 13.7 (6-22) 04/11/20 09:00 Glucose 111 mg/dL (80-110) H 04/11/20 09:00 Calcium 9.2 mg/dL (8.4-10.2) 04/11/20 09:00 Total Bilirubin 0.3 mg/dL (0.2-1.3) 04/11/20 09:00 AST 32 IU/L (17-59) 04/11/20 09:00 ALT 27 IU/L (<50) 04/11/20 09:00 Alkaline Phosphatase 131 U/L (38-126) H 04/11/20 09:00 Total Protein 7.2 g/dL (6.3-8.2) 04/11/20 09:00 Albumin 4.0 g/dL (3.5-5.0) 04/11/20 09:00 Globulin 3.2 g/dL (1.7-4.1) 04/11/20 09:00 Albumin/Globulin Ratio 1.3 (1.0-2.8) 04/11/20 09:00 Assessment and Plan (1) Malignant neoplasm of gastroesophageal junction Status: Acute Mr. Allen has done well with cycle 1. He has had significant improvement in his swallowing and general sense of well-being. He did not have nausea, vomiting, fever, chills, persistent neuropathy or other worrisome complications. His weight is down about 6 lb. I encouraged him to get a scale and yo weigh himself every day. He has drink enough fluids to maintain his weight. I also encouraged to be as active as he can. Even on days when he does not feel good, I encouraged him to try to walk or at be active even even for just a few minutes at a time, preferably several times a day. On days when he feels better I would encourage him to try to go for a walk and be active. This can increase the efficacy and decrease the toxicity of chemotherapy and may also help to mitigate chemotherapy related neuropathy. He will get cycle 2. Today. He will receive Neulasta tomorrow. Will get a blood count in a week and a return 2 weeks for cycle 3. Will plan to reimage him after cycle 4.. The fact that he has had improvement in symptoms after just 1 dose of chemotherapy is encouraging. He wondered if he could avoid surgery and may be due immunotherapy. I explained that we do use immunotherapy for this diagnosis but in of itself and does not have curative potential. Patients who are cured of adenocarcinoma of the gastroesophageal junction have essentially all had either surgery or radiation therapy as part of their program. He understood the rationale for this. I personally spent 26 minutes in today's [id number] visit with greater than 50% of the time spent in counseling the issues outlined above. Impression: 1. Poorly differentiated adenocarcinoma of the gastroesophageal junction with extension outside the GI tract in to adjacent lymph nodes and soft tissue but no evidence of distant metastatic disease 2. Good tolerance of cycle 1. Of chemotherapy 3. Improvement in swallowing, energy, and sense of well-being with his 1st round of chemotherapy Recommendations: 1. Cycle 2. Of FLOT today 2. Neulasta tomorrow 3. He will weigh himself every day and drink enough fluids to hold his weight steady so he avoids dehydration 4. He was encouraged to be as active as he can comfortably be as discussed above 5. Day 8 blood counts on [facility] 6. Return in 2 weeks for his 3rd dose of chemotherapy 7. Will plan a CT scan after his 4th dose of chemotherapy
--- NOTE | 2020-04-11 10:20 | PC.NURSE ---
WEIGHT LOSS Patient reports weight loss due to poor appetite in last few weeks. Patient states that intake has improved over last few days with return of appetite.
[2020-04-11] MEDS: FOSAPREPITANT 150 MG in SODIUM CHLORIDE 0.9% 150 ML 300 ML IV (10:50)
--- NOTE | 2020-04-11 11:21 | ONC.MSW ---
*Pt received a Chemo Quilt.
[2020-04-11] MEDS: DEXTROSE 5 % IN WATER 100 ML 21 ML IV (11:33)
[2020-04-11] MEDS: SODIUM CHLORIDE EXCEL IV (11:52)
[2020-04-11] MEDS: DOCETAXEL IV (11:52)
[2020-04-11 12:00] VITALS: BP 135/72; PULSE 62; RESP 18; O2SAT 94
[2020-04-11 12:05] VITALS: BP 123/76; PULSE 69; RESP 18; O2SAT 97
[2020-04-11] MEDS: diphenhydrAMINE 50 MG/ML VIAL IV (12:11)
--- NOTE | 2020-04-11 12:12 | PC.NURSE ---
DOCETAXEL Patient started on docetaxel per orders. Within 3 minutes of starting infusion patient felt cool, then flushing heat in his body, also stated some shortness of breath. Patient face turned red and patient notified nursing immediately. Infusion stopped and chemo pulled back from Port. Patient's blood pressure elevated upon vital sign check. Within a few minutes of stopping infusion patient started to recover and facial color went back to normal, and patient stated that flushing and shortness of breath were better. Dr. Rey notified of reaction and verbal orders to give benadryl 50mg iv and to pause infusion for 20 minutes and restart infusion after break at slower rate. Patient blood pressure returning to normal for patient. Patient resting quietly at this time in chair.
[2020-04-11 12:56] VITALS: BP 110/63; PULSE 63; RESP 18; O2SAT 97
--- NOTE | 2020-04-11 13:28 | PC.NURSE ---
docetaxel rate slowly increased and pt tolerating. reports maybe lightheadedness related to drowsiness after Benadryl IV. pt relaxing in chair. SBP 95. reinforced for pt to let us know if lightheadedness worsens.
[2020-04-11] MEDS: OXALIPLATIN IV (14:44)
[2020-04-11] MEDS: DEXTROSE 5% IV ×2 (14:44)
[2020-04-11] MEDS: LEUCOVORIN IV (14:44)
--- NOTE | 2020-04-12 08:45 | PC.NURSE ---
late entry for 04/11/20: 5fu pump connected, connections secured, equashield used, +blood return. pump green light blinking.
[2020-04-12 16:36] VITALS: BP 127/71; PULSE 71; RESP 18; TEMP 36.7; O2SAT 99
[2020-04-12] MEDS: PEGFILGRASTIM-CBQV 6 MG/0.6 ML SYRINGE SUBCUT (17:02)
--- NOTE | 2020-04-13 14:11 | ONC.SCHED ---
Sent msg. to [facility] as per patient request regarding getting a hotel for the night of 04/25/20
--- NOTE | 2020-04-16 10:24 | ONC.MSW ---
Description: Lodging Activity: Set-up a reservation at the [facility] for pt the night of 04/25, per his request, due to treatment needs. No further needs are identified at this time.
--- NOTE | 2020-04-24 14:55 | ONC.MSW ---
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 Will notify him tomorrow when he is in clinic.
[2020-04-25 09:16] VITALS: BP 116/68; PULSE 77; RESP 18; TEMP 36.4; O2SAT 99
--- NOTE | 2020-04-25 09:54 | P.PNONC_ITS ---
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 He originally presented to Dr. Love in December with a one-week history of hiccups, regurgitation and an abnormal sensation of swallowing. This persisted and he had a barium swallow on January 23 that showed a stricture at the gastroesophageal junction. He was referred to Dr. Quintanilla on February 15 that on March 02 he had an upper endoscopy that showed a poorly differentiated adenocarcinoma of the gastroesophageal junction that was HER2 negative. A subsequent CT scan of the chest, abdomen pelvis showed a GE junction tumor with extension of mass into the gastrohepatic ligament abutting blood vessels but no distant metastases. He was seen by Dr. Orlin Jimenez at [facility] in [place]. On March 14 a PET scan showed his primary tumor and adjacent lymph nodes but no evidence of distant metastases. Last week he had a laparoscopic staging study which, according to the patient, was negative. Pathology from the laparoscopy was negative. Because of his locally advanced tumor he was started on neoadjuvant FLOT chemotherapy 2 weeks ago. He received Neulasta on day 2. He notes that the 1st few days he was exhausted and had anorexia. He developed gradually increasing constipation that got better with milk of magnesia. He had cold induced numbness in his hands and feet that has since resolved. He has been hydrating well. He has lost about 2 lb since last treatment but feels like his oral intake is good. He has had some scant epistaxis and soreness of his external nares but no other bleeding. He feels generally weak and tired but is better than before he started therapy. He is not exercising. He has had some constipation resolved with milk of magnesia and 1 episode of bright red blood p er rectum that was brief after manual disimpaction but no other bleeding. He still has abdominal pain in the epigastric region this better when he sits upper eats. Overall it is better than it was. He has not had any mouth sores, other bleeding or bruising, fixed numbness or tingling or any falls. He denies fever, chills, sweats, cough or shortness of breath. All other systems are negative. Past medical history 1. Geriatric assessment: He is independent with his ADLs and IADLs. Get up and go time was 10 seconds which is normal. He answered questions fluently without problems. He has had no falls in the last year. His CARG score is 4 reflecting a risk of significant chemotherapy toxicity of about 30%. Overall he has a fit geriatric status. 2. Family history of lung cancer in his maternal grandfather otherwise no family history of malignancy. 3. He has had no surgeries 4. 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 He has a female significant other with whom he shares a house and is available to help with his medical issues. He smokes 3-4 cigarettes a day and over the years has been a half pack-a-day smoker. He is not a drinker. 5. He has had kidney stones, most recently May 2019. 6. He denies high blood pressure, diabetes, rheumatic fever, tuberculosis, heart attacks, strokes, stomach ulcers, pneumonia or any other kind of cancer 7. No known drug allergies 8. Current medications include Flonase nose spray, as needed Ativan, naproxen 250 mg twice a day as needed, pantoprazole 20 mg daily and PreserVision. - Patient Self-Reported Symptoms SR Constitution: Weight loss/gain SR ears, nose, mouth, throat issues: Nose bleeds SR Skin issues: Dry skin, Hair loss or scalp prob SR Gastrointestinal issues: Constipation SR Neuro issues: Lightheaded/dizzy Home Medications and Allergies Home Medications Medication Instructions Recorded Confirmed Type lorazepam [Ativan] 0.5 mg PO TID PRN #25 tab 03/27/20 04/11/20 Rx prochlorperazine maleate 10 mg PO Q6H PRN #25 tab 03/27/20 04/11/20 Rx [Compazine] magnesium hydroxide [Milk of 400 mg PRN PRN 04/11/20 04/11/20 History Magnesia] Allergies Allergy/AdvReac Type Severity Reaction Status Date / Time No Known Drug Allergies Allergy Verified 03/23/20 10:13 Exam Vital signs: Vital Signs Temp Pulse Resp BP Pulse Ox 04/25/20 09:16 97.6 F 77 18 116/68 99 Intake and Output 04/24/20 04/25/20 04/25/20 23:59 07:59 15:59 Other: Weight 84.5 kg Patient Weight 04/25/20 23:59 Weight 84.5 kg Narrative: He was awake, alert and oriented x3. Was fully ambulatory and in no acute distress. Results - Labs Laboratory Last Values WBC 11.3 X10^3/uL (4.5-11.0) H 04/11/20 09:00 RBC 4.57 X10^6/uL (4.5-5.9) 04/11/20 09:00 Hgb 14.4 g/dL (13.5-17.5) 04/11/20 09:00 Hct 42.9 % (41-53) 04/11/20 09:00 MCV 93.8 fL (80-100) 04/11/20 09:00 MCH 31.6 PG (26-34) 04/11/20 09:00 MCHC 33.7 % (30-36) 04/11/20 09:00 RDW 12.7 % (11.6-14.8) 04/11/20 09:00 Plt Count 340 X10^3/uL (150-400) 04/11/20 09:00 Neut % (Auto) 67.4 % (50-75) 04/11/20 09:00 Lymph % (Auto) 23.5 % (25-40) L 04/11/20 09:00 [place] % (Auto) 7.2 % (3-14) 04/11/20 09:00 Eos % (Auto) 0.8 % (2-4) L 04/11/20 09:00 Baso % (Auto) 1.1 % (0-2) 04/11/20 09:00 Neut # (Auto) 7600 /uL (4784-5091) H 04/11/20 09:00 Lymph # (Auto) 2700 /uL (0052-4427) 04/11/20 09:00 [place] # (Auto) 800 /uL (0-900) 04/11/20 09:00 Eos # (Auto) 100 /uL (0-450) 04/11/20 09:00 Baso # (Auto) 100 /uL (0-100) 04/11/20 09:00 Sodium 138 mmol/L (137-145) 04/11/20 09:00 Potassium 4.6 mmol/L (3.4-5.1) 04/11/20 09:00 Chloride 103 mmol/L (98-107) 04/11/20 09:00 Carbon Dioxide 31 mmol/L (22-32) 04/11/20 09:00 BUN 13 mg/dL (9-20) 04/11/20 09:00 Creatinine 0.95 mg/dL (0.66-1.25) 04/11/20 09:00 Estimated GFR > 60.0 mL/min (>60) 04/11/20 09:00 BUN/Creatinine Ratio 13.7 (6-22) 04/11/20 09:00 Glucose 111 mg/dL (80-110) H 04/11/20 09:00 Calcium 9.2 mg/dL (8.4-10.2) 04/11/20 09:00 Total Bilirubin 0.3 mg/dL (0.2-1.3) 04/11/20 09:00 AST 32 IU/L (17-59) 04/11/20 09:00 ALT 27 IU/L (<50) 04/11/20 09:00 Alkaline Phosphatase 131 U/L (38-126) H 04/11/20 09:00 Total Protein 7.2 g/dL (6.3-8.2) 04/11/20 09:00 Albumin 4.0 g/dL (3.5-5.0) 04/11/20 09:00 Globulin 3.2 g/dL (1.7-4.1) 04/11/20 09:00 Albumin/Globulin Ratio 1.3 (1.0-2.8) 04/11/20 09:00 Assessment and Plan (1) Malignant neoplasm of gastroesophageal junction Status: Acute Mr. Allen has done well with his chemotherapy. He is due for his 3rd dose today which will administer of his blood counts are good. He has tolerated things quite well and has had improvement in his swallowing and his epigastric pain, both of which are good signs. His day 8 CBC was normal and he has not had any worrisome toxicities to date. We will get him back in 2 weeks for his 4th dose of chemotherapy. Will then plan to get a CT scan after that to assess response. We discussed the rationale for a CT scan rather than a PET scan to allow quantitative assessment of previously enlarged areas. Will also coordinate with Dr. Hernandez after the CT scan to arrange next steps. We reviewed the fact that the standard of care would be to give 4 doses of chemotherapy, reassess with a scan, and consider surgery at that point. We also discussed the importance of exercise. I explained this helps to reduce toxicity increase efficacy of chemotherapy. In addition, fit patients do better with surgery, which is another compelling reason to try to exercise. We discussed the fact that walking is as good as anything and that frequent small amounts are likely to go better than trying to do a lot of exercise all at once. We discussed strategies to implemented maintain this recommendation. He also had questions about immunotherapy. I explained that we use this routinely in the setting of metastatic adenocarcinoma of the gastroesophageal junction with a high CPS. However, its role in a neoadjuvant setting is unclear. We reviewed the fact that I had reviewed discussed his case with Dr. Márquez at the [place] [facility] in that they are not incorporating immunotherapy in to the neoadjuvant chemo therapy setting for adenocarcinoma of the GE junction. I personally spent 29 minutes in today's [id number] visit with greater than 50% of the time spent in counseling regarding the issues outlined above. Impression: 1. Poorly differentiated adenocarcinoma of the gastroesophageal junction with extension outside the GI tract in to adjacent lymph nodes and soft tissue but no evidence of distant metastatic disease 2. Good tolerance of chemotherapy thus far 3. Improvement in swallowing, energy, and sense of well-being and improvement in his abdominal pain Recommendations: 1. Cycle 3 of FLOT today 2. Neulasta tomorrow 3. He will weigh himself every day and drink enough fluids to hold his weight steady so he avoids dehydration 4. He was encouraged to be as active as he can comfortably be as discussed above 5. Day 8 blood counts on [facility] 6. Return in 2 weeks for his 4th dose of chemotherapy 7. Will plan a CT scan after his 4th dose of chemotherapy
[2020-04-25 10:17] LABS: Add Manual Diff / Slide Review YES; Hematocrit 42.2 % (41-53); Hemoglobin 13.9 g/dL (13.5-17.5); Mean Corpuscular HGB Conc 32.9 % (30-36); Mean Corpuscular Hemoglobin 30.5 PG (26-34); Mean Corpuscular Volume 92.8 fL (80-100); Platelet Count 339 X10^3/uL (150-400); Red Blood Cell Count 4.55 X10^6/uL (4.5-5.9); Red Cell Distribution Width 12.9 % (11.6-14.8); White Blood Cell Count 16.1 X10^3/uL (4.5-11.0)
[2020-04-25 10:24] LABS: Alanine Aminotransferase 36 IU/L (<50); Albumin 3.8 g/dL (3.5-5.0); Albumin Globulin Ratio 1.1 (1.0-2.8); Alkaline Phosphatase 171 U/L (38-126); Aspartate Aminotransferase 33 IU/L (17-59); BUN Creatinine Ratio 14.3 (6-22); Bilirubin Total 0.3 mg/dL (0.2-1.3); Blood Urea Nitrogen 12 mg/dL (9-20); Calcium 8.8 mg/dL (8.4-10.2); Carbon Dioxide 30 mmol/L (22-32); Chloride 101 mmol/L (98-107); Estimated Glomerular Filt Rate > 60.0 mL/min (>60); Globulin 3.4 g/dL (1.7-4.1); Glucose 119 mg/dL (80-110); HEMOLYSIS < 15 (0-50); Potassium 4.4 mmol/L (3.4-5.1); Sodium 136 mmol/L (137-145); Total Protein 7.2 g/dL (6.3-8.2)
[2020-04-25 10:38] LABS: Neutrophils Absolute Manual 10626 /uL (3000-5900); RBC Morphology Normal Morphology; Total Cells Counted 100
[2020-04-25] MEDS: DEXTROSE 5 % IN WATER 100 ML 21 ML IV (11:53)
[2020-04-25] MEDS: FOSAPREPITANT 150 MG in SODIUM CHLORIDE 0.9% 150 ML 200 ML IV (11:53)
[2020-04-25] MEDS: diphenhydrAMINE 50 MG/ML VIAL IV (12:37)
[2020-04-25] MEDS: SODIUM CHLORIDE EXCEL IV (12:54)
[2020-04-25] MEDS: DOCETAXEL IV (12:54)
[2020-04-25] MEDS: LEUCOVORIN IV (15:12)
[2020-04-25] MEDS: DEXTROSE 5% IV ×2 (15:12→15:13)
[2020-04-25] MEDS: OXALIPLATIN IV (15:13)
--- NOTE | 2020-04-25 17:52 | PC.NURSE ---
Patient tolerated infusions today without incident. Patient hooked to 24 hour pump at 17:40. pump infusing per orders and protocol. Patient will return to [facility] tomorrow for deaccess.
--- NOTE | 2020-04-26 15:45 | PC.NURSE ---
PUMP: Pt reports issue with pump infusion last night. Pt called [facility] about 11:30pm and someone showed up around 1:00am. Pt reports that pump infusion was stopped approx one and a half hours to two hours. Pt would like [place] be able [place] ferry tonight in [place] to get home, asking if it would be okay to D/C pump at time originally expected (prior to pump delay). Dr. Bailey agreeable to d/c pump a little early in order to allow pt to make ferry. Pt aware.
[2020-04-26] MEDS: PEGFILGRASTIM-CBQV 6 MG/0.6 ML SYRINGE SUBCUT (16:52)
--- NOTE | 2020-04-26 16:57 | PC.NURSE ---
5fu waste: pt states pump last night at midnight started beeping and lost charge. He called [facility] and they came to him to fix the pump. He states he was 2 hours off 5fu infusion. Shows up to clinic, explains situation. Dr. Bailey ok'd pump to be stopped at 1645 and waste what was left of 5fu. port flushed and deaccessed.
--- NOTE | 2020-05-02 13:55 | PC.NURSE ---
PATIENT CALLED IN REPORTING ONE EPISODE OF DIAHRREA THIS AM, PARTIALLY BLACK, BLOOD VISIBLE. HE IS FEELING FAINT MUCH OF TODAY BUT HAS NOT BLACKED OUT. NO PAIN, NO FEVER OF CHILLS, URINATION OK. EATING AND DRINKING WELL. REPORT MADE TO DR CONDE AND PATIENT INFORMED THAT PER DRS ORDER HE IS TO CALL HIS PCP TO HAVE A BLOOD COUNT AND TO SEE HIM IF POSSIBLE. HE SHOULD CALL 911 IF INCREASED BLEEDING OR FAINTNESS/BLACKOUT. PATIENT TO CALL HERE IF FURTHER QUESTIONS.
--- NOTE | 2020-05-09 14:54 | ONC.MSW ---
*Sent bereavement card.
== END ==
PROVIDERS: PCP Family Medicine; Referring Provider Family Medicine; Visit Provider Internal Medicine
DX: Z51.11 Encounter for antineoplastic chemotherapy (principal); C16.0 Malignant neoplasm of cardia; F17.210 Nicotine dependence, cigarettes, uncomplicated
CPT/HCPCS: 36591; 80053; 85025; 96365; 96367; 96368; 96372; 96375; 96413; 96415; 96417; 99205; 99211; 99214; 99215; J0640; J1100; J1200; J1453; J2469; J7050; J9171; J9263; Q5111